=== PATIENT | female | born 1970 | race Two or more races ===

== ENCOUNTER 2024-05-15 03:34 | Inpatient (IN) | payer MEDICARE, OTHER ==
[2024-05-15] VITALS (41 sets, daily range): BP systolic 84–136; BP diastolic 55–84; TEMP 98.8–100; O2SAT 93–100
[~2024-05-15] VITALS: Ht 165.1 cm; Wt 109.8 kg
[2024-05-15] MEDS: IV NS 0.9% 1,000 ML IV ONE ×2 (03:46→03:56)
[2024-05-15] MEDS ORDERED: PIPERACI/TAZO 3.375GM/D5W 50ML PB IV ONE (03:47)
[2024-05-15] MEDS ORDERED: ACETAMINOPHEN 650 MG/SUPP.RECT RC ONE (03:49)
[2024-05-15] MEDS: ACETAMINOPHEN 650 MG/SUPP.RECT RC ONE (03:57)
[2024-05-15] MEDS: PIPERACILLIN /TAZOBACTAM 3.375 G in IV D5W 50 ML IV ONE (04:00)
[2024-05-15 04:27] LABS: BASOPHILS # (AUTO) 0.1 K/uL (0.0-0.2); BASOPHILS % (AUTO) 0.3 % (0.0-2.0); HEMATOCRIT 35 % (33-45); HEMOGLOBIN 10.9 g/dL (11.5-14.8); LYMPHOCYTES # (AUTO) 2.6 K/uL (0.8-4.8); MEAN CORPUSCULAR HEMOGLOBIN 28 PG (26.0-33.0); MEAN CORPUSCULAR HGB CONC 31 g/dl (31.0-36.0); MEAN CORPUSCULAR VOLUME 90 fL (82-100); MONOCYTES # (AUTO) 1.3 K/uL (0.1-1.30); MONOCYTES % (AUTO) 5.9 % (2.0-12.0); NEUTROPHILS # (AUTO) 17.9 K/uL (1.8-8.9); NEUTROPHILS % (AUTO) 81.8 % (43.0-81.0); PLATELET COUNT (AUTO) 179 K/uL (150-450); RED BLOOD CELL COUNT(AUTO) 3.89 MIL/uL (4.0-5.2); RED CELL DISTRIBUTION WIDTH 14.7 % (11.5-15.0); WHITE BLOOD COUNT (AUTO) 21.8 K/uL (4.3-11.0)
[2024-05-15 04:37] LABS: BILIRUBIN,URINE NEGATIVE (NEGATIVE); BLOOD, URINE 3+ Ery/uL (NEGATIVE); COLOR,URINE YELLOW (YELLOW); KETONES,URINE TRACE mg/dL (NEGATIVE); LEUKOCYTE ESTERASE ,URINE 3+ (NEGATIVE); NITRITE, URINE NEGATIVE (NEGATIVE); PROTEIN,URINE 2+ mg/dl (NEGATIVE); UGLUCOSE TRACE mg/dL (NEGATIVE); UROBILINOGEN,URINE 0.2 EU/dL (0.2)
[2024-05-15] MEDS ORDERED: NOREPINEPHRINE 8MG/250ML RTU 250 ML IV ONE (04:40)
[2024-05-15 04:48] LABS: ALANINE AMINOTRANSFERASE 269 U/L (12-78); ALKALINE PHOSPHATASE 68 U/L (46-116); ASPARTATE AMINOTRANSFERASE 79 U/L (15-37); BILIRUBIN,TOTAL 0.3 mg/dL (0.2-1.0); CALCIUM, SERUM 8.2 mg/dL (8.5-10.1); CARBON DIOXIDE 29 mmol/L (21-32); CHLORIDE 118 mmol/L (98-107); CREATININE 1.7 mg/dL (0.6-1.3); GLUCOSE 251 mg/dL (74-106); POTASSIUM 3.8 mmol/L (3.5-5.1); TOTAL PROTEIN, SERUM 6.1 g/dL (6.4-8.2)
[2024-05-15 04:49] LABS: APPEARANCE,URINE CLOUDY (CLEAR)
[2024-05-15 04:52] LABS: LACTIC ACID 2.1 mmol/L (0.4-2.0); SODIUM SERUM 158 mmol/L (136-145); UREA NITROGEN, BLOOD 81 mg/dL (7-18)
[2024-05-15 04:54] LABS: ABG OXYGEN SATURATION 96.1 % (94.0-98.0); ABG PCO2 37.2 mmHg (32.0-45.0); ABG PH 7.459 (7.350-7.450); ABG PO2 87.7 mmHg (83.0-108.0); ABG TOTAL HEMOGLOBIN 11.4 G/dL (12.0-16.0); COHb 0.2 % (0.5-1.5); O2Hb 95.9 % (94.0-97.0); PEEP,BG 5 cm H2O; SITE, ABG LEFT RADIAL; VT, ABG 500 mL
[2024-05-15] MEDS: NOREPINEPHRINE 8 MG in IV D5W 242 ML IV PRN (05:06)
[2024-05-15 05:16] LABS: ADD URINE CULTURE YES; BACTERIA,URINE Moderate /HPF (None Seen); SQUAMOUS EPITHELIAL CELL,UR Moderate /HPF (None Seen); WBC,URINE TOO NUMEROUS TO COUN /HPF (0-3)
[2024-05-15 05:34] LABS: NT-PRO BNP 37160 pg/mL (0-125)
[2024-05-15] MEDS ORDERED: HYDR-4077 GT (05:59)
[2024-05-15] MEDS ORDERED: THIA100T74 GT (05:59)
[2024-05-15] MEDS ORDERED: ENOX40DI9 SQ (05:59)
[2024-05-15] MEDS ORDERED: GLYC2TAB21 GT (05:59)
[2024-05-15] MEDS ORDERED: MAGN400O21 GT (05:59)
[2024-05-15] MEDS ORDERED: AMLO-213 GT (05:59)
[2024-05-15] MEDS ORDERED: CHLO118L3 MM (05:59)
[2024-05-15] MEDS ORDERED: ATOR40TA GT (05:59)
[2024-05-15] MEDS ORDERED: INSU3INS9 SQ (05:59)
[2024-05-15] MEDS ORDERED: ALBU2.5V13 NEB ×2 (05:59→09:06)
[2024-05-15] MEDS ORDERED: FOLI0.8T3 GT (05:59)
[2024-05-15] MEDS ORDERED: ACET325T53 GT (05:59)
[2024-05-15] MEDS ORDERED: LOSA50TA39 GT (05:59)
[2024-05-15] MEDS ORDERED: LEVE100S GT (05:59)
[2024-05-15] MEDS ORDERED: BISA-79 PO (05:59)
[2024-05-15] MEDS ORDERED: DOCU100T2 GT (05:59)
[2024-05-15] MEDS ORDERED: CARV12.52 GT (05:59)
[2024-05-15] MEDS ORDERED: INSU100V39 SQ (05:59)
[2024-05-15 06:16] LABS: BILIRUBIN,DIRECT 0.1 mg/dL (0.0-0.2)
[2024-05-15 06:22] LABS: LACTIC ACID REFLEX 1.3 mmol/L (0.4-1.9)
[2024-05-15] MEDS ORDERED: BISA10SU11 RC (09:06)
[2024-05-15] MEDS ORDERED: NUT.237L30 GT (09:06)
[2024-05-15] MEDS ORDERED: AMIN30LI66 GT (09:06)
[2024-05-15] MEDS ORDERED: ASCO500L2 GT (09:06)
[2024-05-15] MEDS ORDERED: INSU100V7 SQ (09:06)
[2024-05-15] MEDS ORDERED: VITA1TAB56 GT (09:06)
[2024-05-15] MEDS ORDERED: BISA-79 GT (09:06)
[2024-05-15] MEDS ORDERED: MULT-213 GT (09:06)
[2024-05-15] MEDS: NOREPINEPHRINE 8 MG in IV D5W 242 ML IV SCH (09:10)
[2024-05-15] MEDS: IV D5W 1,000 ML IV PRN (09:13)
[2024-05-15] MEDS: MEROPENEM 1 G in IV NS 0.9% 100 ML IV SCH (09:32)
[2024-05-15] MEDS: HYDROCORTISONE SOD SUCCINATE 100 MG/2 ML VIAL IV SCH (11:08)
[2024-05-15 11:57] LABS: APPEARANCE,URINE CLEAR (CLEAR); BILIRUBIN,URINE NEGATIVE (NEGATIVE); BLOOD, URINE 3+ Ery/uL (NEGATIVE); COLOR,URINE YELLOW (YELLOW); KETONES,URINE NEGATIVE (NEGATIVE); LEUKOCYTE ESTERASE ,URINE TRACE (NEGATIVE); NITRITE, URINE NEGATIVE (NEGATIVE); PH,URINE 6.5 (5.0-8.0); PROTEIN,URINE 1+ mg/dl (NEGATIVE); UGLUCOSE 2+ mg/dL (NEGATIVE); UROBILINOGEN,URINE 0.2 EU/dL (0.2)
[2024-05-15] MEDS ORDERED: HEPARIN INFUSION/D5W 500 ML IV STA (11:58)
[2024-05-15] MEDS ORDERED: HEPARIN SODIUM, PORCINE 5000 UNITS/1 ML VIAL IV ONE ×2 (12:00→12:30)
[2024-05-15] MEDS: IV D5/0.45 NACL 1,000 ML IV PRN (12:15)
[2024-05-15 12:20] LABS: ADD URINE CULTURE YES; BACTERIA,URINE Few /HPF (None Seen)
[2024-05-15] MEDS: HEPARIN SODIUM, PORCINE 5000 UNITS/1 ML VIAL IV ONE (12:52)
[2024-05-15 12:56] LABS: EOSINOPHIL,URINE None Seen
[2024-05-15] MEDS ORDERED: HEPARIN INFUSION/D5W 500 ML IV PRN ×3 (13:00→14:30)
[2024-05-15] MEDS ORDERED: DEXTROSE 50%-WATER 50 ML DISP.SYRIN IV PRN (13:00)
[2024-05-15] MEDS: INSULIN REGULAR, HUMAN 100 UNIT/ML 3 ML VIAL SQ PRN (13:13)
[2024-05-15] MEDS: ACETAMINOPHEN 650 MG/20.3 ML UDC GT PRN (14:13)
[2024-05-15] MEDS: HEPARIN INFUSION/D5W 500 ML IV PRN (14:26)
[2024-05-15] MEDS: BLOOD SUGAR DIAGNOSTIC 1 EACH STRIP IN SCH (17:43)
[2024-05-15] MEDS ORDERED: NOREPINEPHRINE 32 MG in IV NS 0.9% 218 ML IV PRN (22:01)
[2024-05-16] VITALS (31 sets, daily range): BP systolic 92–155; BP diastolic 50–98; TEMP 98.7–100; O2SAT 89–100
[2024-05-16 02:54] LABS: ABG BASE EXCESS 1.6 mmol/L (-2.0-3.0); ABG OXYGEN SATURATION 93.6 % (94.0-98.0); ABG PCO2 39.6 mmHg (32.0-45.0); ABG PH 7.433 (7.350-7.450); ABG PO2 70.2 mmHg (83.0-108.0); ABG TOTAL HEMOGLOBIN 11.3 G/dL (12.0-16.0); COHb 0.3 % (0.5-1.5); MetHb 0.3 % (0.0-1.5); PEEP,BG 5 cm H2O; SITE, ABG LEFT RADIAL; VT, ABG 500 mL
[2024-05-16 04:21] LABS: BASOPHILS % (AUTO) 0.2 % (0.0-2.0); HEMATOCRIT 33 % (33-45); HEMOGLOBIN 10.3 g/dL (11.5-14.8); LYMPHOCYTES # (AUTO) 2.1 K/uL (0.8-4.8); LYMPHOCYTES % (AUTO) 11.7 % (20.0-44.0); MEAN CORPUSCULAR HEMOGLOBIN 28 PG (26.0-33.0); MEAN CORPUSCULAR HGB CONC 32 g/dl (31.0-36.0); MEAN CORPUSCULAR VOLUME 89 fL (82-100); MONOCYTES % (AUTO) 5.6 % (2.0-12.0); NEUTROPHILS # (AUTO) 14.5 K/uL (1.8-8.9); NEUTROPHILS % (AUTO) 82.5 % (43.0-81.0); PLATELET COUNT (AUTO) 191 K/uL (150-450); RED BLOOD CELL COUNT(AUTO) 3.67 MIL/uL (4.0-5.2); RED CELL DISTRIBUTION WIDTH 14.5 % (11.5-15.0); WHITE BLOOD COUNT (AUTO) 17.6 K/uL (4.3-11.0)
[2024-05-16 04:35] LABS: CALCIUM, SERUM 8.6 mg/dL (8.5-10.1); CREATININE 0.9 mg/dL (0.6-1.3); POTASSIUM 3.2 mmol/L (3.5-5.1)
[2024-05-16 04:38] LABS: ALBUMIN 1.9 g/dL (3.4-5.0); BILIRUBIN,TOTAL 0.4 mg/dL (0.2-1.0); MAGNESIUM 2.2 mg/dL (1.8-2.4); PHOSPHORUS 3.1 mg/dL (2.5-4.9); TOTAL PROTEIN, SERUM 6.2 g/dL (6.4-8.2)
[2024-05-16 04:44] LABS: LACTIC ACID 1.5 mmol/L (0.4-2.0)
[2024-05-16 04:46] LABS: THYROID STIMULATING HORMONE 0.73 uIU/mL (0.358-3.74)
[2024-05-16] MEDS: Z GUARD REMEDY 4 OZ OINT TP SCH (08:05)
[2024-05-16] MEDS: POTASSIUM CHLORIDE 20 MEQ TAB.PRT.SR PO ONE (09:37)
[2024-05-16] MEDS: FREE WATER VIA TUBE FEEDING GT SCH (12:27)
[2024-05-16] MEDS ORDERED: PROPOFOL 100 ML IV SCH (15:30)
[2024-05-16] MEDS ORDERED: PROPOFOL 100 ML IV PRN (16:06)
[2024-05-16] MEDS: PROPOFOL 100 ML IV PRN (16:56)
[2024-05-17] VITALS (61 sets, daily range): BP systolic 71–148; BP diastolic 48–92; TEMP 98.1–98.9; O2SAT 93–100
[2024-05-17 03:00] LABS: ABG BASE EXCESS 2.8 mmol/L (-2.0-3.0); ABG OXYGEN SATURATION 70.6 % (94.0-98.0); ABG PCO2 40.8 mmHg (32.0-45.0); ABG PH 7.441 (7.350-7.450); ABG PO2 36.9 mmHg (83.0-108.0); ABG TOTAL HEMOGLOBIN 9.8 G/dL (12.0-16.0); COHb 0.3 % (0.5-1.5); MetHb 0.2 % (0.0-1.5); O2Hb 70.2 % (94.0-97.0); PEEP,BG 5 cm H2O; SITE, ABG RIGHT RADIAL; VT, ABG 475 mL
[2024-05-17] MEDS: NOREPINEPHRINE 8 MG in IV D5W 242 ML IV PRN (03:13)
[2024-05-17 04:27] LABS: BASOPHILS % (AUTO) 0.2 % (0.0-2.0); EOSINOPHILS % (AUTO) 0.2 % (0.0-6.0); HEMATOCRIT 30 % (33-45); HEMOGLOBIN 9.4 g/dL (11.5-14.8); LYMPHOCYTES # (AUTO) 3.4 K/uL (0.8-4.8); LYMPHOCYTES % (AUTO) 15.2 % (20.0-44.0); MEAN CORPUSCULAR HEMOGLOBIN 28 PG (26.0-33.0); MEAN CORPUSCULAR HGB CONC 32 g/dl (31.0-36.0); MEAN CORPUSCULAR VOLUME 89 fL (82-100); MONOCYTES % (AUTO) 4.7 % (2.0-12.0); NEUTROPHILS # (AUTO) 17.7 K/uL (1.8-8.9); NEUTROPHILS % (AUTO) 79.7 % (43.0-81.0); PLATELET COUNT (AUTO) 281 K/uL (150-450); RED BLOOD CELL COUNT(AUTO) 3.36 MIL/uL (4.0-5.2); RED CELL DISTRIBUTION WIDTH 14.4 % (11.5-15.0); WHITE BLOOD COUNT (AUTO) 22.2 K/uL (4.3-11.0)
[2024-05-17 05:02] LABS: BAND % (MANUAL) 4 % (0.0-5.0); LYMPHOCYTES % (MANUAL) 14 % (16-48); METAMYELOCYTES % 1 % (0-0); MONOCYTES % (MANUAL) 5 % (0-11.0); NEUTROPHILS % (MANUAL) 76 (42-76)
[2024-05-17 05:03] LABS: PLATELET ESTIMATE ADEQUATE
[2024-05-17 05:07] LABS: CREATININE 0.7 mg/dL (0.6-1.3); POTASSIUM 3.2 mmol/L (3.5-5.1)
[2024-05-17] MEDS ORDERED: ALBUTEROL FS 2.5 MG/0.5 ML VIAL.NEB IH PRN (08:00)
[2024-05-17 08:09] LABS: PTH, INTACT 73 pg/mL (15-65)
[2024-05-17 08:38] LABS: ABG BASE EXCESS 0.8 mmol/L (-2.0-3.0); ABG PCO2 31.1 mmHg (32.0-45.0); ABG PH 7.497 (7.350-7.450); ABG PO2 121.7 mmHg (83.0-108.0); ABG TOTAL HEMOGLOBIN 10.1 G/dL (12.0-16.0); COHb 0.2 % (0.5-1.5); MetHb 0.3 % (0.0-1.5); O2Hb 97.5 % (94.0-97.0); PEEP,BG 10 cm H2O; SITE, ABG RIGHT RADIAL; VT, ABG 475 mL
[2024-05-17] MEDS: PROSOURCE / PROSTAT (PYXIS) 30 ML UDC GT SCH (09:00)
[2024-05-17] MEDS: PANTOPRAZOLE 40 MG VIAL IV SCH (09:46)
[2024-05-17] MEDS: LEVETIRACETAM SOL (5 ML) 100 MG/ML UDC GT SCH ×2 (09:46→21:27)
[2024-05-17] MEDS: VITAMIN B COMP W-C 1 TAB TABLET GT SCH (09:46)
[2024-05-17] MEDS: POTASSIUM CHLORIDE 20 MEQ POWDER PACKET GT ONE (09:46)
[2024-05-17] MEDS: THIAMINE HCL 100 MG TABLET GT SCH (09:47)
[2024-05-17] MEDS: APIXABAN 5 MG TABLET PO SCH (09:47)
[2024-05-17] MEDS: FOLIC ACID 1 MG TABLET GT SCH (09:47)
[2024-05-17] MEDS: MULTIVIT W/MINERALS 1 TAB TABLET GT SCH (09:47)
[2024-05-17] MEDS: ASPIRIN 81 MG TAB.CHEW PEG SCH (09:47)
[2024-05-17] MEDS: ASCORBIC ACID 500 MG TABLET GT SCH (09:47)
[2024-05-17] MEDS: Z GUARD REMEDY 4 OZ OINT TP PRN (09:49)
[2024-05-17 10:09] LABS: *SPE A/G RATIO 0.6 (0.7-1.7); *SPE ALPHA-1-GLOBULIN 0.3 g/dL (0.0-0.4); *SPE ALPHA-2-GLOBULIN 1.4 g/dL (0.4-1.0); *SPE BETA GLOBULIN 1.1 g/dL (0.7-1.3); *SPE GLOBULIN, TOTAL 3.5 g/dL (2.2-3.9); *SPE M-SPIKE Not Observed g/dL (Not Observed); *SPE PROTEIN TOTAL 5.5 g/dL (6.0-8.5); *SPEGAMMA GLOBULIN 0.7 g/dL (0.4-1.8)
[2024-05-17] MEDS: GLYCOPYRROLATE 1 MG TABLET GT SCH (13:34)
[2024-05-17] MEDS: HYDROCORTISONE SOD SUCCINATE 100 MG/2 ML VIAL IV SCH (13:34)
[2024-05-17] MEDS: ALBUTEROL FS 2.5 MG/0.5 ML VIAL.NEB IH SCH (13:46)
[2024-05-17] MEDS ORDERED: APIXABAN 5 MG TABLET GT SCH (16:52)
[2024-05-17] MEDS ORDERED: GLUCERNA 1.2 1,000 ML BOTTLE NG PRN (17:00)
[2024-05-17] MEDS: GLUCERNA 1.2 1,000 ML BOTTLE GT PRN (17:58)
[2024-05-17] MEDS: APIXABAN 5 MG TABLET GT SCH (21:04)
[2024-05-17] MEDS: ATORVASTATIN 40 MG TABLET GT SCH (21:27)
[2024-05-17] MEDS: INSULIN GLARGINE, 100 UNIT/ML CARTRIDGE SQ SCH (23:15)
[2024-05-18] VITALS (43 sets, daily range): BP systolic 113–159; BP diastolic 69–102; TEMP 97.5–99.2; O2SAT 96–100
[2024-05-18 01:15] LABS: CREATININE, URINE 87.5 MG/DL (30.0-125.0); URINE TOTAL PROTEIN 82.9 mg/dL (0-11.9)
[2024-05-18 04:08] LABS: BASOPHILS % (AUTO) 0.1 % (0.0-2.0); EOSINOPHILS % (AUTO) 0.1 % (0.0-6.0); HEMATOCRIT 28 % (33-45); HEMOGLOBIN 8.9 g/dL (11.5-14.8); LYMPHOCYTES # (AUTO) 2.5 K/uL (0.8-4.8); MEAN CORPUSCULAR HEMOGLOBIN 28 PG (26.0-33.0); MEAN CORPUSCULAR HGB CONC 32 g/dl (31.0-36.0); MEAN CORPUSCULAR VOLUME 89 fL (82-100); MONOCYTES # (AUTO) 0.8 K/uL (0.1-1.30); MONOCYTES % (AUTO) 4.9 % (2.0-12.0); NEUTROPHILS # (AUTO) 12.2 K/uL (1.8-8.9); NEUTROPHILS % (AUTO) 78.9 % (43.0-81.0); PLATELET COUNT (AUTO) 245 K/uL (150-450); RED CELL DISTRIBUTION WIDTH 14.5 % (11.5-15.0); WHITE BLOOD COUNT (AUTO) 15.5 K/uL (4.3-11.0)
[2024-05-18 04:27] LABS: CREATININE 0.4 mg/dL (0.6-1.3); POTASSIUM 3.8 mmol/L (3.5-5.1)
[2024-05-18] MEDS: IV NS 0.9% 250 ML IV PRN (05:01)
[2024-05-18 05:32] LABS: BAND % (MANUAL) 1 % (0.0-5.0); LYMPHOCYTES % (MANUAL) 11 % (16-48); METAMYELOCYTES % 1 % (0-0); MONOCYTES % (MANUAL) 5 % (0-11.0); MYELOCYTES % 1 % (0-0); NEUTROPHILS % (MANUAL) 81 (42-76); PLATELET ESTIMATE ADEQUATE
[2024-05-18] MEDS: PANTOPRAZOLE 40 MG/PACK PACK GT SCH (09:15)
[2024-05-18] MEDS: APIXABAN 5 MG TABLET GT SCH (09:21)
[2024-05-18 09:52] LABS: ABG BASE EXCESS -2.2 mmol/L (-2.0-3.0); ABG PH 7.492 (7.350-7.450); ABG PO2 96.7 mmHg (83.0-108.0); ABG TOTAL HEMOGLOBIN 10.2 G/dL (12.0-16.0); COHb 0.3 % (0.5-1.5); MetHb 0.3 % (0.0-1.5); O2Hb 96.4 % (94.0-97.0); PEEP,BG 5 cm H2O; SITE, ABG RIGHT RADIAL; VT, ABG 450 mL
[2024-05-18] MEDS: CARVEDILOL 12.5 MG TABLET PO SCH (15:23)
[2024-05-18] MEDS: AMLODIPINE BESYLATE 5 MG TABLET PO SCH (18:18)
[2024-05-19] VITALS (31 sets, daily range): BP systolic 104–147; BP diastolic 65–104; TEMP 98.4–99.4; O2SAT 96–100
[2024-05-19 05:48] LABS: BASOPHILS # (AUTO) 0.1 K/uL (0.0-0.2); BASOPHILS % (AUTO) 0.4 % (0.0-2.0); EOSINOPHILS % (AUTO) 0.1 % (0.0-6.0); HEMATOCRIT 30 % (33-45); HEMOGLOBIN 9.4 g/dL (11.5-14.8); LYMPHOCYTES # (AUTO) 2.9 K/uL (0.8-4.8); LYMPHOCYTES % (AUTO) 15.5 % (20.0-44.0); MEAN CORPUSCULAR HEMOGLOBIN 28 PG (26.0-33.0); MEAN CORPUSCULAR HGB CONC 32 g/dl (31.0-36.0); MEAN CORPUSCULAR VOLUME 89 fL (82-100); MONOCYTES # (AUTO) 0.8 K/uL (0.1-1.30); MONOCYTES % (AUTO) 4.4 % (2.0-12.0); NEUTROPHILS # (AUTO) 14.8 K/uL (1.8-8.9); NEUTROPHILS % (AUTO) 79.6 % (43.0-81.0); PLATELET COUNT (AUTO) 264 K/uL (150-450); RED BLOOD CELL COUNT(AUTO) 3.35 MIL/uL (4.0-5.2); RED CELL DISTRIBUTION WIDTH 14.2 % (11.5-15.0); WHITE BLOOD COUNT (AUTO) 18.6 K/uL (4.3-11.0)
[2024-05-19 05:53] LABS: CALCIUM, SERUM 8.3 mg/dL (8.5-10.1); CREATININE 0.5 mg/dL (0.6-1.3); POTASSIUM 3.8 mmol/L (3.5-5.1)
[2024-05-19] MEDS: FREE WATER VIA TUBE FEEDING GT SCH (12:13)
[2024-05-19] MEDS: HYDROCORTISONE SOD SUCCINATE 100 MG/2 ML VIAL IV SCH (16:49)
[2024-05-19] MEDS: INSULIN GLARGINE, 100 UNIT/ML CARTRIDGE SQ SCH (23:36)
[2024-05-20] VITALS (16 sets, daily range): BP systolic 113–149; BP diastolic 75–95; TEMP 98.6–99.3; O2SAT 95–100
[2024-05-20 05:13] LABS: BASOPHILS % (AUTO) 0.2 % (0.0-2.0); EOSINOPHILS # (AUTO) 0.1 K/uL (0.0-0.7); EOSINOPHILS % (AUTO) 0.7 % (0.0-6.0); HEMATOCRIT 29 % (33-45); HEMOGLOBIN 9.2 g/dL (11.5-14.8); LYMPHOCYTES # (AUTO) 3.9 K/uL (0.8-4.8); LYMPHOCYTES % (AUTO) 18.7 % (20.0-44.0); MEAN CORPUSCULAR HEMOGLOBIN 28 PG (26.0-33.0); MEAN CORPUSCULAR HGB CONC 31 g/dl (31.0-36.0); MEAN CORPUSCULAR VOLUME 89 fL (82-100); MONOCYTES # (AUTO) 0.8 K/uL (0.1-1.30); MONOCYTES % (AUTO) 3.8 % (2.0-12.0); NEUTROPHILS # (AUTO) 15.8 K/uL (1.8-8.9); NEUTROPHILS % (AUTO) 76.6 % (43.0-81.0); PLATELET COUNT (AUTO) 252 K/uL (150-450); RED BLOOD CELL COUNT(AUTO) 3.29 MIL/uL (4.0-5.2); RED CELL DISTRIBUTION WIDTH 14.5 % (11.5-15.0); WHITE BLOOD COUNT (AUTO) 20.7 K/uL (4.3-11.0)
[2024-05-20 05:32] LABS: CALCIUM, SERUM 7.7 mg/dL (8.5-10.1); CREATININE 0.4 mg/dL (0.6-1.3); POTASSIUM 3.7 mmol/L (3.5-5.1)
[2024-05-20] MEDS ORDERED: PIPERACILLIN /TAZOBACTAM 3.375 G in IV D5W 50 ML IV SCH (12:00)
[2024-05-20] MEDS: CEFEPIME 2 GM in IV D5W 100 ML IV SCH (14:01)
[2024-05-21] VITALS (7 sets, daily range): BP systolic 99–154; BP diastolic 54–97; TEMP 97.7–98.8; O2SAT 98–100
[2024-05-21 07:57] LABS: BASOPHILS % (AUTO) 0.1 % (0.0-2.0); EOSINOPHILS # (AUTO) 0.1 K/uL (0.0-0.7); EOSINOPHILS % (AUTO) 0.7 % (0.0-6.0); HEMATOCRIT 30 % (33-45); HEMOGLOBIN 9.9 g/dL (11.5-14.8); LYMPHOCYTES # (AUTO) 3.5 K/uL (0.8-4.8); LYMPHOCYTES % (AUTO) 16.6 % (20.0-44.0); MEAN CORPUSCULAR HEMOGLOBIN 29 PG (26.0-33.0); MEAN CORPUSCULAR HGB CONC 33 g/dl (31.0-36.0); MEAN CORPUSCULAR VOLUME 88 fL (82-100); MONOCYTES # (AUTO) 0.7 K/uL (0.1-1.30); MONOCYTES % (AUTO) 3.5 % (2.0-12.0); NEUTROPHILS # (AUTO) 16.9 K/uL (1.8-8.9); NEUTROPHILS % (AUTO) 79.1 % (43.0-81.0); PLATELET COUNT (AUTO) 293 K/uL (150-450); RED BLOOD CELL COUNT(AUTO) 3.46 MIL/uL (4.0-5.2); RED CELL DISTRIBUTION WIDTH 14.1 % (11.5-15.0); WHITE BLOOD COUNT (AUTO) 21.3 K/uL (4.3-11.0)
[2024-05-21 08:16] LABS: CALCIUM, SERUM 8.1 mg/dL (8.5-10.1); CREATININE 0.5 mg/dL (0.6-1.3); POTASSIUM 3.4 mmol/L (3.5-5.1)
[2024-05-21] MEDS: HYDROCORTISONE SOD SUCCINATE 100 MG/2 ML VIAL IV SCH (08:36)
[2024-05-21] MEDS: POTASSIUM CHLORIDE 20 MEQ POWDER PACKET GT ONE (10:23)
[2024-05-21] MEDS ORDERED: POTASSIUM CHLORIDE 20 MEQ TAB.PRT.SR PO ONE (12:30)
[2024-05-21] MEDS: PIPERACILLIN /TAZOBACTAM 3.375 G in IV D5W 50 ML IV SCH (17:49)
[2024-05-21] MEDS: INSULIN GLARGINE, 100 UNIT/ML CARTRIDGE SQ SCH (21:24)
[2024-05-22] VITALS: BP 120/73; TEMP 98.4; O2SAT 99
[2024-05-22 04:00] VITALS: BP 107/79; TEMP 98.2; O2SAT 99
[2024-05-22 07:51] LABS: BASOPHILS # (AUTO) 0.1 K/uL (0.0-0.2); BASOPHILS % (AUTO) 0.3 % (0.0-2.0); EOSINOPHILS # (AUTO) 0.1 K/uL (0.0-0.7); EOSINOPHILS % (AUTO) 0.4 % (0.0-6.0); HEMATOCRIT 30 % (33-45); HEMOGLOBIN 9.3 g/dL (11.5-14.8); LYMPHOCYTES # (AUTO) 2.6 K/uL (0.8-4.8); LYMPHOCYTES % (AUTO) 12.7 % (20.0-44.0); MEAN CORPUSCULAR HEMOGLOBIN 28 PG (26.0-33.0); MEAN CORPUSCULAR HGB CONC 31 g/dl (31.0-36.0); MEAN CORPUSCULAR VOLUME 89 fL (82-100); MONOCYTES # (AUTO) 0.8 K/uL (0.1-1.30); NEUTROPHILS # (AUTO) 16.9 K/uL (1.8-8.9); NEUTROPHILS % (AUTO) 82.6 % (43.0-81.0); PLATELET COUNT (AUTO) 293 K/uL (150-450); RED BLOOD CELL COUNT(AUTO) 3.31 MIL/uL (4.0-5.2); WHITE BLOOD COUNT (AUTO) 20.5 K/uL (4.3-11.0)
[2024-05-22 08:00] VITALS: BP 99/54; TEMP 99.1; O2SAT 99
[2024-05-22 08:06] LABS: CALCIUM, SERUM 8.4 mg/dL (8.5-10.1); CREATININE 0.5 mg/dL (0.6-1.3); POTASSIUM 3.6 mmol/L (3.5-5.1)
[2024-05-22] MEDS ORDERED: APIX5TAB GT (08:53)
[2024-05-22] MEDS ORDERED: INSU100V7 SQ (08:53)
[2024-05-22] MEDS ORDERED: PIPE3.379 IV (08:56)
[2024-05-22 11:13] LABS: BAND % (MANUAL) 1 % (0.0-5.0); EOSINOPHILS % (MANUAL) 1 % (0-4); LYMPHOCYTES % (MANUAL) 23 % (16-48); MONOCYTES % (MANUAL) 3 % (0-11.0); NEUTROPHILS % (MANUAL) 72 (42-76)
[2024-05-22 11:15] LABS: ANISOCYTOSIS 1+; PLATELET ESTIMATE ADEQUATE; STOMATOCYTES 1+
[2024-05-22 12:00] VITALS: BP 119/78; TEMP 98.9; O2SAT 100
[2024-05-22 14:00] VITALS: BP 114/76; TEMP 98.1; O2SAT 98
[2024-05-22 16:00] VITALS: BP 114/76; TEMP 98.1; O2SAT 98
== END 2024-05-22 17:23 | DRG 870 ==
LOC: ER 03:35 → ICU 05:31 → TELE1 05-20 12:17
PROVIDERS: ADMIT Internal Medicine; ATTEND Internal Medicine
PROC: 5A1955Z Respiratory Ventilation, Greater than 96 Consecutive Hours (ICD-10-PCS; principal; 2024-05-15)
DX: A41.9 Sepsis, unspecified organism (principal); I21.A1 Myocardial infarction type 2; N17.0 Acute kidney failure with tubular necrosis; R65.21 Severe sepsis with septic shock; J69.0 Pneumonitis due to inhalation of food and vomit; R57.1 Hypovolemic shock; J96.10 Chronic respiratory failure, unspecified whether with hypoxia or hypercapnia; I82.412 Acute embolism and thrombosis of left femoral vein; I82.432 Acute embolism and thrombosis of left popliteal vein; Z99.11 Dependence on respirator [ventilator] status; N39.0 Urinary tract infection, site not specified; E87.0 Hyperosmolality and hypernatremia; G93.49 Other encephalopathy; E27.40 Unspecified adrenocortical insufficiency; J98.11 Atelectasis; Z20.822 Contact with and (suspected) exposure to COVID-19; Z86.73 Personal history of transient ischemic attack (TIA), and cerebral infarction without residual deficits; G40.909 Epilepsy, unspecified, not intractable, without status epilepticus; Z74.01 Bed confinement status; Z93.1 Gastrostomy status; Z93.0 Tracheostomy status; R13.10 Dysphagia, unspecified; Z88.8 Allergy status to other drugs, medicaments and biological substances; Z79.4 Long term (current) use of insulin; Z79.01 Long term (current) use of anticoagulants; Z79.899 Other long term (current) drug therapy; E86.0 Dehydration; I10 Essential (primary) hypertension; Z86.74 Personal history of sudden cardiac arrest; D64.9 Anemia, unspecified; E11.40 Type 2 diabetes mellitus with diabetic neuropathy, unspecified; E78.5 Hyperlipidemia, unspecified; E87.6 Hypokalemia; Z68.34 Body mass index [BMI] 34.0-34.9, adult; E66.9 Obesity, unspecified; I25.10 Atherosclerotic heart disease of native coronary artery without angina pectoris; I70.0 Atherosclerosis of aorta; S90.521A Blister (nonthermal), right ankle, initial encounter; X58.XXXA Exposure to other specified factors, initial encounter; Y92.9 Unspecified place or not applicable; L89.621 Pressure ulcer of left heel, stage 1; L89.611 Pressure ulcer of right heel, stage 1; N13.9 Obstructive and reflux uropathy, unspecified; L89.316 Pressure-induced deep tissue damage of right buttock; B96.4 Proteus (mirabilis) (morganii) as the cause of diseases classified elsewhere
CPT/HCPCS: 31720; 36415; 36600; 71045-TC; 76770-TC; 80048-TC; 80053-TC; 81001; 82248-TC; 82533; 82550-TC; 82553; 82570-TC; 82803-TC; 82962-TC; 83540-TC; 83605-TC; 83735-TC; 83880; 83970; 84100-TC; 84155; 84165; 84300-TC; 84443-TC; 84478-TC; 84484-TC; 85025-TC; 85730-TC; 87040-TC; 87081-TC; 87086-TC; 93307-TC; 93970-TC; 94002-TC; 94003-TC; 94760-TC; 94762-TC; 94799-TC; 99082-TC; A4217; A4223; A6253; A6403; A7526; G0378; J0692; J1644; J1720; J1815; J1953; J2185; J2470; J2543; J3370; J3490; J7030; J7050; J7060